=== PATIENT | male | born 1950 ===

== ENCOUNTER 2019-03-15 21:50 | Emergency (ER) | payer OTHER ==
[~2019-03-15] VITALS: Ht 162.6 cm; Wt 45.8 kg
[~2019-03-15 21:50] MED LIST: ANTIVERT25 MG PO; NEURONTIN600 MG PO; RELAFEN500 MG PO; VIRACEPT250 MG PO
[2019-03-15] MEDS ORDERED: DESCOVY 200-251 EACH (21:59)
[2019-03-15] MEDS ORDERED: ISENTRESS HD600 MG (21:59)
[2019-03-15] MEDS ORDERED: SYNTHROID50 MCG (22:00)
[2019-03-15] MEDS ORDERED: ZESTRIL5 MG (22:00)
[2019-03-15] MEDS ORDERED: SYNTHROID75 MCG (22:00)
[2019-03-15] MEDS ORDERED: ZANTAC 7575 MG (22:01)
[2019-03-15] MEDS ORDERED: FORTAMET500 MG (22:01)
[2019-03-15] MEDS ORDERED: TRICOR145 MG (22:01)
[2019-03-15] MEDS ORDERED: BUTALBIT-ACETA1 EACH PO (23:54)
== END 2019-03-15 23:59 | disposition home or self-care (01) ==
LOC: ER 21:50
DX: R51 Headache (principal)

== ENCOUNTER 2019-05-16 19:02 | Emergency (ER) | payer OTHER ==
[~2019-05-16] VITALS: Ht 162.6 cm; Wt 45.8 kg
[~2019-05-16 19:02] MED LIST changes: +BUTALBIT-ACETA1 EACH PO; +DESCOVY 200-251 EACH; +FORTAMET500 MG; +ISENTRESS HD600 MG; +SYNTHROID50 MCG; +SYNTHROID75 MCG; +TRICOR145 MG; +ZANTAC 7575 MG; +ZESTRIL5 MG
== END 2019-05-16 19:32 | disposition home or self-care (01) ==
LOC: ER 19:02
DX: R06.02 Shortness of breath (principal); F41.1 Generalized anxiety disorder

== ENCOUNTER 2021-09-04 22:27 | Emergency (ER) | payer OTHER ==
[~2021-09-04] VITALS: Ht 162.6 cm; Wt 49.0 kg
[2021-09-05] MEDS ORDERED: ASPIRIN EC325 MG PO (12:04)
== END 2021-09-05 12:33 | disposition home or self-care (01) ==
LOC: ER 22:27
DX: G45.9 Transient cerebral ischemic attack, unspecified (principal); I10 Essential (primary) hypertension; E11.9 Type 2 diabetes mellitus without complications; R42 Dizziness and giddiness; Z20.822 Contact with and (suspected) exposure to COVID-19; Z91.041 Radiographic dye allergy status
CPT/HCPCS: 70551